=== PATIENT | male | born 2000 | race Caucasian/White ===

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

== ENCOUNTER 2021-03-14 22:09 | Emergency (ER) | payer OTHER ==
[~2021-03-14] VITALS: Ht 167.6 cm; Wt 48.1 kg
[~2021-03-14 22:09] MED LIST changes: +CEPHALEXIN500 M1 PO
== END 2021-03-15 02:45 | disposition left against medical advice (07) ==
LOC: ED 22:09
DX: K08.89 Other specified disorders of teeth and supporting structures (principal); Z53.21 Procedure and treatment not carried out due to patient leaving prior to being seen by health care provider